=== PATIENT | male | born 1970 | race American Indian/Alaskan Native ===

== ENCOUNTER 2021-06-02 12:21 | Emergency (ER) | payer SELFPAY ==
--- NOTE | 2021-06-02 12:40 | Emergency Department Report ---
ED Seizure HPI - General Chief Complaint: Seizure Stated Complaint: SEIZURES Time Seen by Provider: 06/02/21 12:29 Source: EMS Mode of arrival: Stretcher Limitations: No Limitations - History of Present Illness Initial Comments: Initial chart is under the wrong birthdate which is to be corrected by Registration 51-year-old male with a past medical history hypertension presents to the hospital with possible seizure. I greeted patient upon arrival and interviewed EMS. EMS reports that when they came on scene the girlfriend reported that patient collapsed out of bed. There is no clear cut history of shaking however, patient does endorse urinary incontinence without tongue biting. EMS also states that patient was more confused at the scene and confusion is improving gradually. Patient is oriented to self. Complains of a headache for unknown amount of time. He initially was answering questions but then began to answer I do not know too many questions including duration of headache, age, year, and if he is taking any current medication. No apparent reported history of seizures. Headache is frontal and posterior and rated 710 in intensity without aggravating or alleviating factors. Patient admits to occasional marijuana use and denies daily alcohol or other drug use. After I reviewed the CAT scan I was able to obtain patient growth is number for collateral information. His girlfriend is [employer] phone number [phone]. She states patient complaining of a headache for several days. Patient was getting to bed said "Oh Shit" then fell down has seizure activity followed by snoring respirations and confusion. She states that patient does not have any known medical problems and is not on any blood thinners. They have been together for 4 years and intermittently but each other. Patient states his mom is designated to make medical decisions for him. Her name is Nereida Gonzales she prefers to be reached at her home number of [phone]. Her cell number is [phone]. She is in [place] - Related Data Allergies Allergy/AdvReac Type Severity Reaction Status Date / Time No Known Allergies Allergy Verified 06/02/21 12:26 ED Review of Systems ROS: Stated complaint: SEIZURES Other details as noted in HPI Comment: All other systems reviewed and negative ED Past Medical Hx - Past Medical History Hx Hypertension: Yes ED Physical Exam - General Limitations: No Limitations - Other Other exam information: General: No acute distress Head: Atraumatic Eyes: normal appearance ENT: Moist mucous membranes, no tongue laceration Neck: Normal appearance, no midline tenderness Chest: Clear to auscultation bilaterally CV: Regular rate and rhythm Abdomen: Soft, normal bowel sounds, nontender, nondistended, no rebound or guarding urinary incontinence noted Back: Normal inspection Extremity: Normal inspection, full range of motion Neuro: Alert O x 2, GCS intially 14 for orientation, no facial asymmetry, speech clear, no gross motor sensory deficit Psych: Appropriate behavior Skin: No rip, ED Course Vital Signs 06/02/21 06/02/21 06/02/21 12:26 12:37 12:41 Temperature 98.0 F 97.6 F Pulse Rate 70 68 Respiratory 16 13 12 Rate Blood Pressure Blood Pressure 162/94 130/81 [Right] O2 Sat by Pulse 95 98 100 Oximetry 06/02/21 06/02/21 06/02/21 12:46 13:00 13:16 Temperature Pulse Rate 74 75 75 Respiratory 20 12 22 Rate Blood Pressure 130/81 119/84 119/84 Blood Pressure [Right] O2 Sat by Pulse 98 96 99 Oximetry 06/02/21 06/02/21 06/02/21 13:30 13:46 14:20 Temperature Pulse Rate 69 70 73 Respiratory 11 L 20 18 Rate Blood Pressure 115/79 115/79 134/55 Blood Pressure [Right] O2 Sat by Pulse 99 99 99 Oximetry 06/02/21 06/02/21 06/02/21 14:30 14:46 15:00 Temperature Pulse Rate 78 77 80 Respiratory 11 L 19 20 Rate Blood Pressure 132/78 132/78 132/78 Blood Pressure [Right] O2 Sat by Pulse 99 99 100 Oximetry 06/02/21 06/02/21 06/02/21 15:07 15:16 15:30 Temperature 98.7 F Pulse Rate 90 74 Respiratory 20 18 Rate Blood Pressure 132/78 132/78 Blood Pressure [Right] O2 Sat by Pulse 100 99 Oximetry 06/02/21 06/02/21 15:46 16:00 Temperature Pulse Rate 82 81 Respiratory 22 21 Rate Blood Pressure 126/77 124/85 Blood Pressure [Right] O2 Sat by Pulse 98 98 Oximetry - Reevaluation(s) Reevaluation #1: 06/02/21 14:21 CT performed after my request for stat CT head for new onset seizure with headache and confusion. CT reviewed and it appears that patient has a intraventricular hemorrhage. Official report pending. He remains alert with a GCS of 15 without any focal deficits. He now states the year is 2021, he was born in 1970, and he is 51 years old. He also states he has had a headache for several weeks. He does appear to still have some memory problems and states he does not know if he has a history of hypertension 06/02/21 15:08 Reinformed patient of his diagnosis within 15 minutes of initial explanation he is already forgotten that he was performed and he has a head bleed from aneurysm and had a seizure. His memory appears to have been affected resulting in mild confusion without any other deficit at this time. I 06/02/21 15:3 - Consultations Consultation #1: 06/02/21 14:55 Case discussed with [facility] transfer service 06/02/21 15:20 Case we discussed with [facility] transfer service with neurosurgeon Dr. Judd and neuro community sports coordinator Dr. Ann on the phone. They have accepted patient for transfer to [place] via ground transportation. Recommend to keep systolic blood pressure less than 150. Agree with [place]. I have provided patients next of kin mother phone number for point of contact ED Medical Decision Making - Lab Data Result diagrams: 06/02/21 12:59 06/02/21 12:59 Lab Results 06/02/21 06/02/21 06/02/21 Range/Units 12:59 12:59 12:59 WBC 5.3 (4.5-11.0) K/mm3 RBC 5.60 H (3.65-5.03) M/mm3 Hgb 15.1 (11.8-15.2) gm/dl Hct 47.8 H (35.5-45.6) % MCV 85 (84-94) fl MCH 27 L (28-32) pg MCHC 32 (32-34) % RDW 14.2 (13.2-15.2) % Plt Count 244 (140-440) K/mm3 Lymph % (Auto) 23.3 (13.4-35.0) % [place] % (Auto) 9.7 H (0.0-7.3) % Eos % (Auto) 1.8 (0.0-4.3) % Baso % (Auto) 0.7 (0.0-1.8) % Lymph # (Auto) 1.2 (1.2-5.4) K/mm3 [place] # (Auto) 0.5 (0.0-0.8) K/mm3 Eos # (Auto) 0.1 (0.0-0.4) K/mm3 Baso # (Auto) 0.0 (0.0-0.1) K/mm3 Seg Neutrophils % 64.5 (40.0-70.0) % Seg Neutrophils # 3.4 (1.8-7.7) K/mm3 Sodium 143 (137-145) mmol/L Potassium 3.7 (3.6-5.0) mmol/L Chloride 105.6 (98-107) mmol/L Carbon Dioxide 27 (22-30) mmol/L Anion Gap 14 mmol/L BUN 10 (9-20) mg/dL Creatinine 0.8 (0.8-1.3) mg/dL Estimated GFR > 60 ml/min BUN/Creatinine Ratio 13 % Glucose 81 (75-100) mg/dL Calcium 8.8 (8.4-10.2) mg/dL Magnesium 1.90 (1.7-2.3) mg/dL Total Bilirubin 0.50 (0.1-1.2) mg/dL AST 19 (5-40) units/L ALT 31 (7-56) units/L Alkaline Phosphatase 92 (35-129) units/L Troponin T < 0.010 (0.00-0.029) ng/mL Total Protein 7.2 (6.3-8.2) g/dL Albumin 4.1 (3.9-5) g/dL Albumin/Globulin Ratio 1.3 % Plasma/Serum Alcohol < 0.01 (0-0.07) % - EKG Data -: EKG Interpreted by Co EKG shows normal: sinus rhythm, ST-T waves Rate: normal - Radiology Data Radiology results: report reviewed CT head/brain wo con INDICATION: dalal, syncope vs seziure. TECHNIQUE: Routine CT head. All CT scans at this location are performed using CT dose reduction for A RAVIN by means of automated exposure control. COMPARISON: None. FINDINGS: There is a parenchymal hematoma seen in the right gyrus rectus. Associated intraventricular extension seen into the lateral ventricles and third ventricle. No hydrocephalus. No loss of boyer-white matter differentiation to suggest acute territorial infarction. No herniation. IMPRESSION: 1. Parenchymal hematoma in the right gyrus rectus with intraventricular extension. 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 Recommend CTA of the head. - Medical Decision Making 51-year male presents to the hospital with headache for several days with increased headache with seizure episode. CT head suggestive of intracerebral hemorrhage secondary to ruptured aneurysm. Case was discussed with [facility]surgery and neuro community sports coordinator who accepted patient for transfer. Patient medicated with Keppra Amicar and cardiac monitoring with goal to keep BP less than 150. Patient's girlfriend and mother were informed of patient's condition and plan transfer to [place]. She will attempt to see patient prior to transfer Critical Care Time: Yes Critical care time in (mins) excluding proc time.: 75 Critical care attestation.: If time is entered above; I have spent that time in minutes in the direct care of this critically ill patient, excluding procedure time. Critical Care Time: 75 Minutes of critical care time excluding procedures were used in the care of the patient. I came immediately to the bedside upon patient's arrival. I obtained history from EMS at the bedside. I discussed treatment plan with the nursing team members. I reviewed electronic record. I spoke with family to obtain medical history. Patient required multiple interventions and reassessments. I spoke to consultants at [facility] to arrange for emergent transfer for neurosurgery treatment ED Disposition Clinical Impression: SAH (subarachnoid hemorrhage), Seizure, Headache Disposition: 02 SHORT TERM HOSPITAL Is pt being admited?: No Does the pt Need Aspirin: No Referrals: PATRICK ROMANO MD [Primary Care Provider] - 3-5 Days
[2021-06-02] MEDS ORDERED: levETIRAcetam 1000 MG/NS 0.75% 1,000 MG/100 ML BAG IV ONE (12:43)
[2021-06-02 13:38] LABS: Basophils % (Auto) 0.7 % (0.0-1.8); Eosinophils # (Auto) 0.1 K/mm3 (0.0-0.4); Eosinophils % (Auto) 1.8 % (0.0-4.3); Hematocrit 47.8 % (35.5-45.6); Hemoglobin 15.1 gm/dl (11.8-15.2); Lymphocytes # (Auto) 1.2 K/mm3 (1.2-5.4); Lymphocytes % (Auto) 23.3 % (13.4-35.0); Mean Corpuscular HGB Conc 32 % (32-34); Mean Corpuscular Volume 85 fl (84-94); Monocytes # (Auto) 0.5 K/mm3 (0.0-0.8); Monocytes % (Auto) 9.7 % (0.0-7.3); Platelet Count 244 K/mm3 (140-440); Red Cell Distribution Width 14.2 % (13.2-15.2)
[2021-06-02 14:39] LABS: Alanine Aminotransferase 31 units/L (7-56); Albumin 4.1 g/dL (3.9-5); BUN/Creatinine Ratio 13; Blood Urea Nitrogen 10 mg/dL (9-20); Calcium 8.8 mg/dL (8.4-10.2); Hemolysis Index 14
[2021-06-02 15:39] LABS: INR 0.91 (0.87-1.13); Partial Thromboplastin Time 27.5 Sec. (24.2-36.6)
[2021-06-02 15:43] LABS: Amphetamine Screen,Urine Negative; Benzodiazepines Screen,Urine Negative; Cocaine Screen,Urine Negative; Methadone Screen,Urine Negative; Opiate Screen,Urine Negative
[2021-06-02 15:57] LABS: Cannabinoid Screen,Urine Positive
[2021-06-02] MEDS ORDERED: AMINOCAPROIC ACID 5,000 MG in SODIUM CHLORIDE 0.9% 100 ML IV ONE (16:00)
[2021-06-02 16:11] VITALS: BP 124/85
--- NOTE | 2021-06-05 08:27 | Cat Scan Report ---
CT head/brain wo con INDICATION: dalal, syncope vs seziure. TECHNIQUE: Routine CT head. All CT scans at this location are performed using CT dose reduction for A RAVIN by means of automated exposure control. COMPARISON: None. FINDINGS: There is a parenchymal hematoma seen in the right gyrus rectus. Associated intraventricular extension seen into the lateral ventricles and third ventricle. No hydrocephalus. No loss of boyer-white matter differentiation to suggest acute territorial infarction. No herniation. IMPRESSION: 1. Parenchymal hematoma in the right gyrus rectus with intraventricular extension. Pattern of hemorr sandra is highly concerning for an anterior communicating artery aneurysm rupture. Recommend CTA of the head. Inofmred Dr. Hampton at 1:40 Signer Name: Paras Nava MD Signed: 06/02/2021 2:40 PM Workstation Name: [id number]
== END 2021-06-02 18:19 | disposition short-term general hospital (02) ==
LOC: EDBD 12:21 → ED 12:21
DX: I60.9 Nontraumatic subarachnoid hemorrhage, unspecified (principal); R56.9 Unspecified convulsions
CPT/HCPCS: 36415; 70450; 80053; 80307; 82962; 83735; 84484; 85025; 85610; 85730; 86850; 86900; 86901; 93005; 93010; 96365; 96375; 99291; 99292; J1953; J3490; 80320; G0480